=== PATIENT | male | born 1985 | race Caucasian/White ===

== ENCOUNTER → 2020-03-25 | Emergency (ER) | payer BC ==
[~2020-03-25] VITALS: Ht 185.4 cm; Wt 122.5 kg
[~2020-03-25] MED LIST: BACITRACIN TOP OINT 1 UD PKG TOP ONE; KETOROLAC TROMETH 60MG/2ML VIAL IM ONE; LIDOCAINE 1% (LOCAL ANESTH.) PF 5ml SDV ID ONE
[2020-03-26 01:55] VITALS: BP 134/99
== END | disposition home or self-care (01) ==
LOC: ER 23:20
DX: S61.214A Laceration without foreign body of right ring finger without damage to nail, initial encounter (principal); W25.XXXA Contact with sharp glass, initial encounter; Y93.89 Activity, other specified; Y92.89 Other specified places as the place of occurrence of the external cause; Y99.8 Other external cause status
CPT/HCPCS: 12001; 73120